=== PATIENT | female | born 1995 | race African-American/Black ===

== ENCOUNTER 2017-04-21 16:25 | Emergency (ER) | payer MEDICAID ==
[~2017-04-21] VITALS: Ht 162.6 cm; Wt 82.0 kg
[2017-04-21] MEDS ORDERED: MORPHINE SULFATE 4 MG/ML CPJ (NOT FOR IM USE) IV ONE (17:00)
[2017-04-21] MEDS ORDERED: SODIUM CHLORIDE 0.9% 1,000 ML IV ONE (17:00)
[2017-04-21 17:26] LABS: BASOPHILS % 0.7 % (0.0-2.0); EOSINOPHILS % 1.9 % (0.0-5.0); HEMOGLOBIN. 10.5 g/dL (12.0-16.0); LYMPHOCYTES % 16.9 % (20.0-50.0); MEAN CORPUSCULAR HEMOGLOBIN 25.8 pg (28.0-32.0); MEAN CORPUSCULAR VOLUME 78.5 fL (81.0-99.0); MEAN PLATELET VOLUME 8.8 fl (7.4-10.4); MONOCYTES % 7.4 % (2.0-8.0); NEUTROPHILS % 73.1 % (40.0-76.0); PLATELET 227 x1000/uL (130-400); RED BLOOD CELL COUNT 4.07 mill/uL (4.2-5.4); RED CELL DISTRIBUTION WIDTH 13.9 % (11.6-14.6)
[2017-04-21 17:28] LABS: CHLORIDE 108 mEq/L (98-107)
[2017-04-21 17:30] LABS: CARBON DIOXIDE 22 mEq/L (21-32)
[2017-04-21 17:51] LABS: B-HCG QUANTITATIVE 44421 mIU/mL (<3)
[2017-04-21] MEDS ORDERED: CEFTRIAXONE 1 G PREMIX 50 ML IV ONE (19:00)
[2017-04-21 19:53] VITALS: BP 129/76
== END 2017-04-21 21:25 | disposition home or self-care (01) ==
LOC: ER 16:46
DX: O03.4 Incomplete spontaneous abortion without complication (principal); O99.512 Diseases of the respiratory system complicating pregnancy, second trimester; Z3A.15 15 weeks gestation of pregnancy; J45.909 Unspecified asthma, uncomplicated; Z87.891 Personal history of nicotine dependence
CPT/HCPCS: 36415; 76805; 80048; 84702; 85025; 86850; 86900; 86901; 96361; 96374; 99285; J0696; J7030; Z7610; J2270

== ENCOUNTER 2018-06-01 15:18 | Observation (INO) | payer MEDICAID ==
[~2018-06-01] VITALS: Ht 162.6 cm; Wt 78.0 kg
[2018-06-01 16:19] LABS: CLARITY URINE CLEAR (CLEAR); COLOR URINE YELLOW (YELLOW); KETONES URINE 4+ (NEGATIVE); LEUKOCYTE ESTERASE URINE 2+ (NEGATIVE); NITRITE URINE NEGATIVE (NEGATIVE); OCCULT BLOOD URINE 1+ (NEGATIVE); PROTEIN URINE TRACE (NEGATIVE); SPECIFIC GRAVITY URINE 1.025 (1.005-1.030); UROBILINOGEN URINE 0.2 E.U./dL (0.2-1.0)
[2018-06-01] MEDS ORDERED: CLINDAMYCIN 600 MG in DEXTROSE 5% WATER 50 ML IV SCH (16:45)
[2018-06-01] MEDS ORDERED: LACTATED RINGERS 1,000 ML IV SCH (16:45)
[2018-06-01] MEDS ORDERED: CLINDAMYCIN 600MG PREMIX 50 ML IV SCH (17:30)
[2018-06-01] MEDS ORDERED: DEXT 5%/LACTATED RINGERS 1,000 ML IV NR (17:30)
[2018-06-01] MEDS ORDERED: PNV1TABL50 PO (19:51)
== END 2018-06-01 20:00 | disposition home or self-care (01) ==
LOC: L&D 15:18
PROVIDERS: ADMIT Obstetrics & Gynecology; ATTEND Obstetrics & Gynecology
DX: O42.912 Preterm premature rupture of membranes, unspecified as to length of time between rupture and onset of labor, second trimester (principal); O26.892 Other specified pregnancy related conditions, second trimester; R10.30 Lower abdominal pain, unspecified; Z3A.23 23 weeks gestation of pregnancy
CPT/HCPCS: 81003; 87086; 96365; G0378; J3490; J7120; 96360; 96361; 99281